=== PATIENT | female | born 1980 | race Caucasian/White ===

== ENCOUNTER → 2016-11-26 | Outpatient (CLI) | payer BC ==
[~2016-11-26] MED LIST: MULT1CHW18 PO
== END | disposition home or self-care (01) ==
LOC: C.PAPS 08:49
PROVIDERS: ATTEND Physician Assistant
DX: Z01.419 Encounter for gynecological examination (general) (routine) without abnormal findings (principal)

== ENCOUNTER → 2016-12-19 | Outpatient (CLI) | payer BC ==
[2016-12-19 14:07] LABS: CHOLESTEROL/HDL RATIO 3.9; THYROID STIMULATING HORMONE 2.36 uIu/ml (0.300-4.500)
== END | disposition home or self-care (01) ==
LOC: C.LAB1850 11:13
PROVIDERS: ATTEND Internal Medicine
DX: E78.00 Pure hypercholesterolemia, unspecified (principal); Z13.1 Encounter for screening for diabetes mellitus

== ENCOUNTER 2023-10-21 07:43 | Inpatient (IN) ==
[2023-10-21] MEDS ORDERED: OXYTOCIN 30 UNITS/NSS 30 UNITS/500 ML BAG IV PRN (08:40)
[2023-10-21] MEDS ORDERED: CALCIUM CARBONATE 500 MG CHEWABLE TAB PO PRN (08:40)
[2023-10-21] MEDS ORDERED: LIDOCAINE 1% LOCAL 20 ML VIAL INFIL PRN (08:40)
--- NOTE | 2023-10-21 08:56 | History & Physical Report ---
Date of Service October 21, 2023 Assessment & Plan (1) Encounter for induction of labor: (2) Insulin controlled gestational diabetes mellitus (GDM) during : (3) GBS (group B Streptococcus carrier), +RV culture, currently : (4) Advanced maternal age, 1st : (5) Rh negative state in antepartum period: Plan admit, iv, labs. start pitocin, pcn for gbs. will arom when appropriate. fhts categ 1. Admission and Anticipated Discharge Date Admission Date: October 21, 2023 History of Present Illness Chief Complaint: induction Primary Care Provider: Jeff Morris MD 43yo at 39+wks ega presents to LD for planned induction of labor. No rom, vb. +FM. No ctx. Recent issue with thrombosed hemorrhoid. PNC c/b 1. AMA>40@del 2. GBS pos 3. GDM on insulin 4. Rh neg, had rhogam,eval pp 5. Obesity PNL rh neg, RI, GBS positive. OBH: g1 GYNH: nl paps, no stds. Allergies Allergy/AdvReac Type Severity Reaction Status Date / Time No Known Allergies Allergy Verified 10/20/23 09:53 Home Medications Medication Instructions Recorded Confirmed Type vit 168-iron 27 mg-folic 1 cap PO DAILY 03/05/23 10/21/23 History acid 800 mcg-omega3 235 mg capsule (One-A-Day -1) aspirin 81 mg tablet,delayed 81 mg PO DAILY 04/30/23 10/21/23 History release cholecalciferol (vitamin D3) 125 125 mcg PO DAILY 04/30/23 10/21/23 History mcg (5,000 unit) tablet (Vitamin D3) cyanocobalamin (vitamin B-12) 500 500 mcg PO DAILY 04/30/23 10/21/23 History mcg tablet (Vitamin B-12) acetone (urine) test (Ketone Urine #50 ea 05/22/23 10/20/23 Rx Test strips) blood sugar diagnostic (EvaneosTouch #150 ea 05/22/23 10/20/23 Rx Verio test strips) blood-glucose meter (EvaneosTouch #1 ea 05/22/23 10/20/23 Rx Verio Reflect Meter) lancets 33 gauge (OneTouch Delica #150 ea 05/22/23 10/20/23 Rx Plus Lancet) pen needle, diabetic 32 gauge x #50 ea 07/20/23 10/20/23 Rx 5/32" (BD Ultra-Fine Joyce Pen Needle) thiamine HCl (vitamin B1) 100 mg 100 mg PO DAILY #30 tabs 07/23/23 10/21/23 Rx tablet insulin NPH isoph U-100 human 100 20 unit subcut QPM 10/21/23 10/21/23 History unit/mL (3 mL) subcutaneous pen (Novolin N FlexPen) Patient History Medical History (Updated 10/21/23 @ 09:02 by Nano Archer MD, FACOG) Obesity Surgical History Hx of cervical biopsy benign History of colonoscopy History of wisdom tooth extraction History of nasal cauterization History of tonsillectomy and adenoidectomy History of myringotomy bilateral Family History Grandmother (Maternal) Family history of diabetes mellitus Family hx colonic polyps Myocardial infarction Mother Family hx of colon cancer Colorectal cancer Grandfather (Maternal) Family hx of colon cancer Family hx colonic polyps Colorectal cancer Denies family history of Ovarian cancer Prostate cancer Breast cancer Social History Smoking Status: Never smoker Second Hand Exposure: No; Do You Dip or Chew Tobacco: No; Hx Alcohol Use: No Hx Substance Use: No Preferred Language: Bangladeshi Communication Ability: Effective Visual Impairment: No Limitations Hearing Ability: Normal Video System Repairer Required: No Beliefs That Will Affect Care: None marital status: Single marital status details: Blu (46) [phone] Current Living Situation: Significant Other Current Living Situation Comment: Lives with significant other, no pets current occupational status: employed current occupation: insurance and benefits clerk Feels Safe at Home: Yes Safety Concerns: Feels Safe At This Time Childhood Exposure to Second-Hand Smoke: No Dental Care, Regularly: Yes Physical Activity Frequency: 5-6 Times per Week Seatbelt Use: always Sunscreen Use: Yes Assistive Devices: None Review of Systems as per Subjective / HPI Physical Exam Constitutional: WD/WN, vitals as above Respiratory: normal respiratory effort, lungs clear to auscultation Cardiovascular: Rate/Rhythm: regular rate and regular rhythm Gastrointestinal (Abdomen): soft gravid nt efw 7-8# Musculoskeletal: no edema nontender calves Neurologic: grossly normal Psychiatric: A+Ox3, euthymic affect Genitourinary: Manual OB Exam: + cervical dilation (2-3), + cervical effaceme nt 70% and + station (mid soft) -2 OB Exam Monitor Tracing: + external FHT monitor used, + external uterine monitor used (irreg), + category I and + normal FHT variability Results & Data Vital Signs (Past 12 Hours) Vital Signs Temp Pulse Resp BP 10/21/23 08:00 98.2 F 20 10/21/23 08:00 111 H 121/81 Coding Level of Care Code None Diagnoses Encounter for induction of labor Z34.90 Insulin controlled gestational diabetes mellitus (GDM) in third trimester O24.414 Trimester: third trimester GBS (group B Streptococcus carrier), +RV culture, currently O99.820 Advanced maternal age, 1st O09.519 Rh negative state in antepartum period O26.899; Z67.91 (2) Insulin controlled gestational diabetes mellitus (GDM) during Trimester: third trimester Qualified Code(s): O24.414 - Gestational diabetes mellitus in , insulin controlled
[2023-10-21] MEDS: LACTATED RINGER'S 1,000 ML IV PRN (09:11)
[2023-10-21] MEDS: PENICILLIN GK 6 MU in DEXTROSE 5% 250 ML IV ONE (09:18)
[2023-10-21] MEDS: OXYTOCIN 30 UNITS/NSS 30 UNITS/500 ML BAG IV PRN (09:23)
[2023-10-21 09:30] LABS: Hemoglobin 11.9 g/dl (12.0-16.0); Mean Corpuscular Hemoglobin 30.3 pg (25.0-34.0); Mean Corpuscular Volume 86.5 fL (80.0-100.0); Platelet Count 188 K/uL (130-400); RDW Coefficient of Variation 13.4 % (11.5-14.5); RDW Standard Deviation 41.9 fL (36.4-46.3); Red Blood Count 3.93 M/uL (4.20-5.40); White Blood Count 7.72 K/ul (4.8-10.8)
--- NOTE | 2023-10-21 11:21 | Labor Progress Brief Note ---
Date of Service October 21, 2023 Subjective called to see pt due to decel. pt was just up at br and then back on monitor fhts 60s. no rom. no significant pain Assessment & Plan (1) Encounter for induction of labor: Plan bradycardia, unknown cause but now improved. restart pit if fhts categ 1 in 20-30min. events reviewed with couple. currently min variab therefore categ 2. Admission and Anticipated Discharge Date Admission Date: October 21, 2023 Physical Exam Constitutional: WD/WN, vitals as above Genitourinary: Manual OB Exam: + cervical dilation (2-3), + cervical effacement 80%, + station -2 and + amniotic fluid (FSE applied) clear OB Exam Monitor Tracing: + external FHT monitor used, + external uterine monitor used (q3, pit was at 7 but dc'd before i came in room. ivf bolus going. ) and + normal FHT variability position change after fse applied. fhts improved to 135, min variability Results & Data Vital Signs (Past 12 Hours) Vital Signs Temp Pulse Resp BP Pulse Ox 10/21/23 11:13 100 10/21/23 11:13 87 10/21/23 10:33 71 10/21/23 10:33 122/73 10/21/23 09:34 82 10/21/23 09:34 126/76 10/21/23 08:00 98.2 F 20 10/21/23 08:00 111 H 121/81 Coding Level of Care Code None Diagnoses Encounter for induction of labor Z34.90
[2023-10-21] MEDS: PENICILLIN GK 3 MU in DEXTROSE 5% 100 ML IV PRN (13:19)
[2023-10-21] MEDS ORDERED: diphenhydrAMINE 50 MG/ML VIAL IV PRN (16:24)
[2023-10-21] MEDS ORDERED: ROPIVACAINE 0.5% PF 5 MG/ML 20 ML VIAL EPI PRN (16:24)
[2023-10-21] MEDS ORDERED: BUPIVACAINE 0.25% PF 30 ML VIAL EPI STA (16:24)
[2023-10-21] MEDS ORDERED: LIDOCAINE 2%/EPINEPHRINE 1:200,000 20 ML PF EPI STA (16:24)
[2023-10-21] MEDS ORDERED: SODIUM CHLORIDE 0.9% PF INJ 10 ML VIAL EPI STA (16:24)
[2023-10-21] MEDS ORDERED: SODIUM CHLORIDE 0.9% PF INJ 10 ML VIAL EPI PRN (16:24)
[2023-10-21] MEDS ORDERED: fentaNYL citrate PF 100 MCG/2 ML VIAL EPI PRN (16:24)
[2023-10-21] MEDS ORDERED: ePHEDrine sulfate 50 MG/ML AMP IV PRN (16:24)
[2023-10-21] MEDS ORDERED: NALOXONE HCL 1 MG in SODIUM CHLORIDE 0.9% 1,000 ML IV PRN (16:24)
[2023-10-21] MEDS ORDERED: fentaNYL citrate PF 100 MCG/2 ML VIAL EPI STA (16:24)
[2023-10-21] MEDS ORDERED: NALBUPHINE HCL 5 MG in SYRINGE 0 ML IV PRN (16:24)
[2023-10-21] MEDS ORDERED: LIDOCAINE 2% MPF LOCAL 5 ML VIAL EPI PRN (16:24)
[2023-10-21] MEDS ORDERED: BUPIVACAINE 0.25% PF 30 ML VIAL EPI PRN (16:24)
[2023-10-21] MEDS ORDERED: NALOXONE HCL 0.4 MG/1 ML VIAL/CARP IV PRN (16:24)
--- NOTE | 2023-10-21 16:26 | Anesthesiology Consultation ---
Date of Service October 21, 2023 Assessment & Plan Chart Review Chart Review: Patient NOT seen in Pre Admission Testing and Acceptable Risk for Labor Epidural Consults Requested none History Height/Weight Height: 5 ft 3 in Weight: 98.43 kg Allergies Allergy/AdvReac Type Severity Reaction Status Date / Time No Known Allergies Allergy Verified 10/20/23 09:53 Medications Home Medications Medication Instructions Recorded Confirmed Last Taken vit 168-iron 27 mg-folic 1 cap PO DAILY 03/05/23 10/21/23 10/20/23 22:00 acid 800 mcg-omega3 235 mg capsule (One-A-Day -1) aspirin 81 mg tablet,delayed 81 mg PO DAILY 04/30/23 10/21/23 10/20/23 22:00 release cholecalciferol (vitamin D3) 125 125 mcg PO DAILY 04/30/23 10/21/23 10/17/23 10:00 mcg (5,000 unit) tablet (Vitamin D3) cyanocobalamin (vitamin B-12) 500 500 mcg PO DAILY 04/30/23 10/21/23 10/17/23 10:00 mcg tablet (Vitamin B-12) acetone (urine) test (Ketone Urine #50 ea 05/22/23 10/20/23 Unknown Test strips) blood sugar diagnostic (OneTouch #150 ea 05/22/23 10/20/23 Unknown Verio test strips) blood-glucose meter (OneTouch #1 ea 05/22/23 10/20/23 Unknown Verio Reflect Meter) lancets 33 gauge (OneTouch Delica #150 ea 05/22/23 10/20/23 Unknown Plus Lancet) pen needle, diabetic 32 gauge x #50 ea 07/20/23 10/20/23 Unknown 5/32" (BD Ultra-Fine Joyce Pen Needle) thiamine HCl (vitamin B1) 100 mg 100 mg PO DAILY #30 tabs 07/23/23 10/21/23 10/17/23 10:00 tablet insulin NPH isoph U-100 human 100 20 unit subcut QPM 10/21/23 10/21/23 10/20/23 23:00 unit/mL (3 mL) subcutaneous pen (Novolin N FlexPen) Active Medications Generic Name Dose Route Start Last Admin Trade Name Freq PRN Reason Stop Dose Admin Oxytocin 30 units in 500 mls @ 7 mls/hr 10/21/23 08:40 10/21/23 14:30 Pitocin 30 Units/Nss IV 10/23/23 08:39 0.42 units/hr .Q24H PRN 7 mls/hr Labor Induction/Augmentation Titration Protocol 0.42 UNITS/HR Lactated Ringer's 1,000 mls @ 125 mls/hr 10/21/23 08:40 10/21/23 16:40 Lr IV 10/23/23 08:39 125 mls/hr .Q8H PRN Administration L&D Protocol Protocol Penicillin G Potassium 3 mu/ 106 mls @ 100 mls/hr 10/21/23 11:40 10/21/23 13:19 Dextrose IV 10/31/23 11:39 100 mls/hr Q4H PRN Administration GBS(+) Until Delivery Past Medical History Medical History Obesity Exercise / Class Metabolic Activity II 4-5 Yardwork/Stairs/Walk up hill Past Family History Family History Grandmother (Maternal) Family history of diabetes mellitus Family hx colonic polyps Myocardial infarction Mother Family hx of colon cancer Colorectal cancer Grandfather (Maternal) Family hx of colon cancer Family hx colonic polyps Colorectal cancer Denies family history of Ovarian cancer Prostate cancer Breast cancer Past Surgical History Surgical History Hx of cervical biopsy benign History of colonoscopy History of wisdom tooth extraction History of nasal cauterization History of tonsillectomy and adenoidectomy History of myringotomy bilateral Social History Smoking Status: Never smoker Do You Dip or Chew Tobacco: No Hx Alcohol Use: No Alcohol type: beer and wine alcohol intake frequency: holidays/special occasions only Hx Substance Use: No substance use type: does not use Physical Exam Vital Signs Last Vital Signs Temp 36.8 C 10/21/23 15:00 Pulse 74 10/21/23 16:44 Resp 20 10/21/23 15:00 BP 123/67 10/21/23 16:44 Pulse Ox 99 10/21/23 16:44 Testing Laboratory Results 10/21/23 08:53 Blood Type A Negative 10/21/23 08:53 Antibody Screen NEGATIVE 10/21/23 08:53 10/21/23 10/21/23 15:51 08:26 POC Glucose 75 106 H
[2023-10-21] MEDS: BUPIVACAINE 0.25% PF 30 ML VIAL ONE (16:41)
[2023-10-21] MEDS: LIDOCAINE 2%/EPINEPHRINE 1:200,000 20 ML PF ONE (16:46)
[2023-10-21] MEDS: fentaNYL citrate PF 100 MCG/2 ML VIAL ONE (16:47)
[2023-10-21] MEDS: fentANYL 2 MCG/ML BUPIVacaine 0.125%-NSS 100ML BAG ONE (16:51)
[2023-10-21] MEDS: ePHEDrine sulfate 50 MG/ML AMP ONE (16:54)
[2023-10-21] MEDS: SODIUM CHLORIDE 0.9% PF INJ 10 ML VIAL ONE (16:54)
--- NOTE | 2023-10-21 19:55 | Labor Progress Brief Note ---
Date of Service October 21, 2023 Subjective pt seen earlier, this is late entry. s/p epidural, comfortable Assessment & Plan (1) Encounter for induction of labor: Plan good progress in labor, pcn for gbs pos, c/ w pit. fhts categ 1. Admission and Anticipated Discharge Date Admission Date: October 21, 2023 Physical Exam Constitutional: WD/WN, vitals as above Genitourinary: Manual OB Exam: + cervical dilation 7 cm, + cervical effacement (75%) and + station 0 OB Exam Monitor Tracing: + external FHT monitor used, + external uterine monitor used (q2-4), + category I, + normal FHT variability and + early decelerations present Results & Data Vital Signs (Past 12 Hours) Vital Signs Temp Pulse Resp BP Pulse Ox 10/21/23 19:50 98 10/21/23 19:50 75 10/21/23 19:46 89 10/21/23 19:46 125/74 10/21/23 19:45 97 10/21/23 19:45 74 10/21/23 19:40 98 10/21/23 19:40 93 H 10/21/23 19:35 99 10/21/23 19:35 119 H 10/21/23 19:30 98 10/21/23 19:30 73 10/21/23 19:29 67 10/21/23 19:29 131/67 10/21/23 19:25 98 10/21/23 19:25 59 L 10/21/23 19:20 99 10/21/23 19:20 61 10/21/23 19:15 99 10/21/23 19:15 66 10/21/23 19:13 73 10/21/23 19:13 126/71 10/21/23 19:10 18 10/21/23 19:10 97.7 F 18 10/21/23 19:10 100 10/21/23 19:10 69 10/21/23 19:05 98 10/21/23 19:05 66 10/21/23 19:00 98 10/21/23 19:00 66 10/21/23 18:59 68 10/21/23 18:59 119/65 10/21/23 18:55 98 10/21/23 18:55 70 10/21/23 18:50 98 10/21/23 18:50 72 10/21/23 18:45 99 10/21/23 18:45 68 10/21/23 18:43 62 10/21/23 18:43 118/65 10/21/23 18:40 97 10/21/23 18:40 60 10/21/23 18:35 98 10/21/23 18:35 65 10/21/23 18:30 98 10/21/23 18:30 67 10/21/23 18:29 67 10/21/23 18:29 113/67 10/21/23 18:25 99 10/21/23 18:25 78 10/21/23 18:20 99 10/21/23 18:20 77 10/21/23 18:16 82 10/21/23 18:16 128/73 10/21/23 18:15 99 10/21/23 18:15 74 10/21/23 18:12 93 10/21/23 18:12 79 10/21/23 18:09 100 10/21/23 18:09 88 10/21/23 18:04 100 10/21/23 18:04 64 10/21/23 17:59 100 10/21/23 17:59 73 10/21/23 17:59 119/58 L 10/21/23 17:54 100 10/21/23 17:54 76 10/21/23 17:51 93 10/21/23 17:51 73 10/21/23 17:49 100 10/21/23 17:49 80 10/21/23 17:44 100 10/21/23 17:44 70 10/21/23 17:44 124/65 10/21/23 17:40 92 10/21/23 17:40 102 H 10/21/23 17:39 95 10/21/23 17:39 94 H 10/21/23 17:34 100 10/21/23 17:34 71 10/21/23 17:29 100 10/21/23 17:29 70 10/21/23 17:28 70 10/21/23 17:28 111/64 10/21/23 17:24 100 10/21/23 17:24 96 H 10/21/23 17:19 100 10/21/23 17:19 69 10/21/23 17:14 100 10/21/23 17:14 66 10/21/23 17:12 66 10/21/23 17:12 109/59 L 10/21/23 17:09 100 10/21/23 17:09 66 10/21/23 17:08 72 10/21/23 17:08 117/58 L 10/21/23 17:04 100 10/21/23 17:04 77 10/21/23 17:03 79 10/21/23 17:03 113/58 L 10/21/23 16:59 99 10/21/23 16:59 75 10/21/23 16:56 88 10/21/23 16:56 115/55 L 10/21/23 16:54 100 10/21/23 16:54 83 10/21/23 16:54 115/68 10/21/23 16:52 80 10/21/23 16:52 122/58 L 10/21/23 16:50 81 10/21/23 16:50 125/60 10/21/23 16:49 99 10/21/23 16:49 84 10/21/23 16:48 81 10/21/23 16:48 131/63 10/21/23 16:46 76 10/21/23 16:46 127/74 10/21/23 16:44 99 10/21/23 16:44 74 10/21/23 16:44 123/67 10/21/23 16:42 78 10/21/23 16:42 136/75 10/21/23 16:41 71 10/21/23 16:41 133/79 10/21/23 16:39 100 10/21/23 16:39 74 10/21/23 16:34 100 10/21/23 16:34 85 10/21/23 16:28 100 10/21/23 16:28 82 10/21/23 16:23 100 10/21/23 16:23 77 10/21/23 16:18 100 10/21/23 16:18 68 10/21/23 16:13 100 10/21/23 16:13 64 10/21/23 16:08 100 10/21/23 16:08 71 10/21/23 16:03 100 10/21/23 16:03 67 10/21/23 15:58 99 10/21/23 15:58 68 10/21/23 15:54 90 10/21/23 15:54 76 10/21/23 15:53 100 10/21/23 15:53 72 10/21/23 15:48 100 10/21/23 15:48 72 10/21/23 15:43 100 10/21/23 15:43 76 10/21/23 15:38 100 10/21/23 15:38 65 10/21/23 15:33 100 10/21/23 15:33 68 10/21/23 15:28 100 10/21/23 15:28 71 10/21/23 15:23 100 10/21/23 15:23 74 10/21/23 15:18 97 10/21/23 15:18 92 H 10/21/23 15:13 99 10/21/23 15:13 89 10/21/23 15:08 99 10/21/23 15:08 68 10/21/23 15:03 99 10/21/23 15:03 73 10/21/23 15:00 20 10/21/23 15:00 98.2 F 20 10/21/23 14:58 100 10/21/23 14:58 74 10/21/23 14:53 98 10/21/23 14:53 66 10/21/23 14:48 100 10/21/23 14:48 73 10/21/23 14:43 98 10/21/23 14:43 94 H 10/21/23 14:39 90 10/21/23 14:39 125/80 10/21/23 14:38 99 10/21/23 14:38 86 10/21/23 14:33 98 10/21/23 14:33 79 10/21/23 14:28 99 10/21/23 14:28 80 10/21/23 14:23 99 10/21/23 14:23 62 10/21/23 14:18 98 10/21/23 14:18 93 H 10/21/23 14:13 99 10/21/23 14:13 83 10/21/23 14:08 99 10/21/23 14:08 72 10/21/23 14:03 100 10/21/23 14:03 75 10/21/23 13:58 100 10/21/23 13:58 90 10/21/23 13:53 99 10/21/23 13:53 75 10/21/23 13:48 99 10/21/23 13:48 65 10/21/23 13:43 99 10/21/23 13:43 74 10/21/23 13:38 100 10/21/23 13:38 71 10/21/23 13:33 99 10/21/23 13:33 77 10/21/23 13:28 99 10/21/23 13:28 76 10/21/23 13:23 20 10/21/23 13:23 98.2 F 20 10/21/23 13:23 99 10/21/23 13:23 82 10/21/23 13:18 99 10/21/23 13:18 81 10/21/23 13:13 100 10/21/23 13:13 66 10/21/23 13:08 99 10/21/23 13:08 71 10/21/23 13:03 99 10/21/23 13:03 77 10/21/23 12:58 100 10/21/23 12:58 72 10/21/23 12:53 100 10/21/23 12:53 71 10/21/23 12:48 100 10/21/23 12:48 81 10/21/23 12:43 100 10/21/23 12:43 69 10/21/23 12:38 100 10/21/23 12:38 73 10/21/23 12:35 71 10/21/23 12:35 110/65 10/21/23 12:33 99 10/21/23 12:33 68 10/21/23 12:28 99 10/21/23 12:28 69 10/21/23 12:23 100 10/21/23 12:23 67 10/21/23 12:18 98 10/21/23 12:18 67 10/21/23 12:13 99 10/21/23 12:13 72 10/21/23 12:08 100 10/21/23 12:08 68 10/21/23 12:03 100 10/21/23 12:03 68 10/21/23 11:58 100 10/21/23 11:58 71 10/21/23 11:53 99 10/21/23 11:53 66 10/21/23 11:48 99 10/21/23 11:48 73 10/21/23 11:43 100 10/21/23 11:43 76 10/21/23 11:38 100 10/21/23 11:38 71 10/21/23 11:33 99 10/21/23 11:33 69 10/21/23 11:30 66 10/21/23 11:30 113/65 10/21/23 11:28 100 10/21/23 11:28 72 10/21/23 11:23 100 10/21/23 11:23 73 10/21/23 11:18 100 10/21/23 11:18 71 10/21/23 11:13 100 10/21/23 11:13 87 10/21/23 10:33 71 10/21/23 10:33 122/73 10/21/23 09:34 82 10/21/23 09:34 126/76 10/21/23 08:00 98.2 F 20 10/21/23 08:00 111 H 121/81 Coding Level of Care Code None Diagnoses Encounter for induction of labor Z34.90
[2023-10-21] MEDS ORDERED: GLUCAGON FOR INJ 1 MG VIAL IM PRN (21:15)
[2023-10-21] MEDS ORDERED: GLUCOSE 40% GEL 15 GM TUBE PO PRN (21:15)
[2023-10-21] MEDS: GLUCOSE 10 TAB/TUBE PO PRN (21:15)
[2023-10-21] MEDS ORDERED: CARBOHYDRATES FOR HYPOGLYCEMIA PO PRN (21:15)
[2023-10-21] MEDS: DEXTROSE 50% 50 ML SYRINGE IV PRN (21:40)
[2023-10-21] MEDS: ONDANSETRON INJ 2 MG/ML 2 ML VIAL IV ONE (22:06)
[2023-10-21] MEDS: fentANYL 2 MCG/ML BUPIVacaine 0.125%-NSS 100ML BAG EPI PRN (23:07)
--- NOTE | 2023-10-22 00:34 | Delivery Summary ---
Vaginal Delivery Summary Date of Service October 22, 2023 Vaginal Delivery Summary and 3rd Degree LAC (partial) The patient dilated to complete and pushed to deliver a viable male infant Apgars 8 and 9 via over partial 3rd degree perineal laceration. Mouth and nose bulb suctioned at perineum. Shoulders and body delivered with ease. was vigorous and crying at . Cord clamped at 30 seconds of life and infant to maternal abdomen where the cord was then doubly clamped and cut. Placenta delivered spontaneously and intact, three-vessel cord. Hemostasis achieved with dilute pitocin and uterine massage and drainage of the bladder for approximately 25 cc under sterile conditions. Laceration repaired in layers with 3-0 vicryl in typical fashion, reinforcing anal sphincter whose fascia was disrupted but not the muscle. Cervix and sulci intact. QBL 439 cc. Mother and baby stable in recovery. [facility] [place] Charge Delivery Type Details: and 3rd Degree LAC (partial)
[2023-10-22] MEDS ORDERED: oxyCODONE/ACETAMINOPHEN 5mg/325mg TAB PO PRN (01:29)
[2023-10-22] MEDS ORDERED: HYDROCORTISONE ACETATE 25 MG SUPP PR PRN (01:29)
[2023-10-22] MEDS ORDERED: OXYTOCIN 30 UNITS/NSS 30 UNITS/500 ML BAG IV PRN (01:29)
[2023-10-22] MEDS: OXYTOCIN 20 UNITS/LR 1,002 ML IV SCH (01:47)
[2023-10-22] MEDS: IBUPROFEN 600 MG TAB PO PRN (01:47)
[2023-10-22] MEDS: BENZOCAINE 20% SPRY 85 APPLN/85 GM CAN EXT PRN (01:47)
[2023-10-22] MEDS ORDERED: SODIUM CHLORIDE 0.9% 250 ML IV PRN (04:06)
[2023-10-22] MEDS: DIPHTHER/TETAN/PERTUS Vaccine (Tdap, Adol/Adult) 0.5mL IM ONE (04:09)
--- NOTE | 2023-10-22 06:57 | Obstetrical Progress Note ---
Date of Service October 22, 2023 Assessment & Plan (1) care following vaginal delivery: stable, routine care. rhneg, await eval. . ri. hemorrhoid care going ok, not as uncomfortable. --will print and sign and fax supercream script when in office tomorrow, pt aware. (2) Rh negative state in antepartum period: Day #:: 1 Subjective Ambulation: ambulating normally Voiding: no voiding problems (small volume but does not feel incomplete) Diet Tolerance:: regular diet Lochia:: Small Feeding Type:: breast feeding hemorrhoid, less uncomfortable. no cp/sob/n/v. Constitutional: + as per Subjective / HPI Physical Exam Constitutional WD/WN, vitals as above Respiratory normal respiratory effort, lungs clear to auscultation Cardiovascular Rate/Rhythm: regular rate and regular rhythm Gastrointestinal (Abdomen) Inspection/Auscultation: abdomen normal to inspection Percussion/Palpation: abdomen soft Fundus firm 2cm down Musculoskeletal nt calves tr edema Neurologic grossly normal Psychiatric A+Ox3, euthymic affect Results & Data Vital Signs (Past 12 Hours) Vital Signs Temp Pulse Pulse Resp BP BP Pulse Ox 10/22/23 04:46 98.2 F 83 18 116/59 L 96 10/22/23 02:31 91 H 107/67 10/22/23 02:30 18 10/22/23 02:16 99 H 111/71 10/22/23 02:02 100 H 109/72 10/22/23 02:00 18 10/22/23 01:47 100 H 106/60 10/22/23 01:30 16 10/22/23 01:16 107 H 119/64 10/22/23 01:15 18 10/22/23 01:01 122 H 120/70 10/22/23 01:00 20 10/22/23 00:45 18 10/22/23 00:42 103 H 123/66 10/22/23 00:30 18 10/22/23 00:27 95 H 121/90 10/22/23 00:25 90 96 10/22/23 00:20 100 H 96 10/22/23 00:15 108 H 96 10/22/23 00:10 96 H 95 10/22/23 00:05 95 H 96 10/22/23 00:00 109 H 96 10/21/23 23:55 97 10/21/23 23:55 153 H 10/21/23 23:55 89 L 10/21/23 23:55 136 H 10/21/23 23:50 96 10/21/23 23:50 117 H 10/21/23 23:49 89 L 10/21/23 23:49 120 H 10/21/23 23:45 97 10/21/23 23:45 130 H 10/21/23 23:44 88 L 10/21/23 23:44 117 H 10/21/23 23:43 130 H 10/21/23 23:43 137/65 10/21/23 23:40 82 L 10/21/23 23:40 126 H 10/21/23 23:37 87 L 10/21/23 23:37 120 H 10/21/23 23:35 96 10/21/23 23:35 135 H 10/21/23 23:31 86 L 10/21/23 23:31 118 H 10/21/23 23:30 97 10/21/23 23:30 109 H 10/21/23 23:29 151 H 10/21/23 23:29 129/72 10/21/23 23:25 94 10/21/23 23:25 117 H 10/21/23 23:21 88 L 10/21/23 23:21 114 H 10/21/23 23:20 98 10/21/23 23:20 110 H 10/21/23 23:15 83 L 10/21/23 23:15 103 H 10/21/23 23:14 91 10/21/23 23:14 102 H 10/21/23 23:13 102 H 10/21/23 23:13 142/71 H 10/21/23 23:10 98.2 F 10/21/23 23:10 98 10/21/23 23:10 96 H 10/21/23 23:05 98 10/21/23 23:05 75 10/21/23 23:00 18 10/21/23 23:00 18 10/21/23 23:00 98 10/21/23 23:00 81 10/21/23 23:00 76 10/21/23 23:00 123/62 10/21/23 22:55 98 10/21/23 22:55 81 10/21/23 22:50 98 10/21/23 22:50 72 10/21/23 22:45 98 10/21/23 22:45 74 10/21/23 22:44 80 10/21/23 22:44 127/63 10/21/23 22:40 98 10/21/23 22:40 77 10/21/23 22:35 97 10/21/23 22:35 80 10/21/23 22:30 97 10/21/23 22:30 84 10/21/23 22:29 100 H 10/21/23 22:29 135/104 H 10/21/23 22:25 96 10/21/23 22:25 78 10/21/23 22:20 98 10/21/23 22:20 76 10/21/23 22:15 98 10/21/23 22:15 79 10/21/23 22:14 84 10/21/23 22:14 135/66 10/21/23 22:10 97 10/21/23 22:10 98 H 10/21/23 22:05 96 10/21/23 22:05 102 H 10/21/23 22:00 96 10/21/23 22:00 73 10/21/23 21:59 70 10/21/23 21:59 144/65 H 10/21/23 21:55 96 10/21/23 21:55 85 10/21/23 21:50 97 10/21/23 21:50 93 H 10/21/23 21:45 98 10/21/23 21:45 86 10/21/23 21:45 94 H 10/21/23 21:45 126/63 10/21/23 21:40 97 10/21/23 21:40 90 10/21/23 21:35 99 10/21/23 21:35 84 10/21/23 21:35 92 10/21/23 21:35 92 H 10/21/23 21:33 98.1 F 10/21/23 21:30 18 10/21/23 21:30 18 10/21/23 21:30 98 10/21/23 21:30 69 10/21/23 21:30 126/58 L 10/21/23 21:25 97 10/21/23 21:25 79 10/21/23 21:20 99 10/21/23 21:20 104 H 10/21/23 21:15 98 10/21/23 21:15 75 10/21/23 21:15 75 10/21/23 21:15 116/63 10/21/23 21:10 97 10/21/23 21:10 75 10/21/23 21:05 98 10/21/23 21:05 82 10/21/23 21:00 18 10/21/23 21:00 18 10/21/23 21:00 98 10/21/23 21:00 80 10/21/23 21:00 137/59 L 10/21/23 20:55 98 10/21/23 20:55 72 10/21/23 20:50 99 10/21/23 20:50 74 10/21/23 20:45 97 10/21/23 20:45 86 10/21/23 20:44 69 10/21/23 20:44 139/64 10/21/23 20:40 99 10/21/23 20:40 75 10/21/23 20:36 90 10/21/23 20:36 100 H 10/21/23 20:35 98 10/21/23 20:35 74 10/21/23 20:30 16 10/21/23 20:30 16 10/21/23 20:30 98 10/21/23 20:30 73 10/21/23 20:29 71 10/21/23 20:29 111/52 L 10/21/23 20:25 99 10/21/23 20:25 72 10/21/23 20:20 100 10/21/23 20:20 69 10/21/23 20:15 100 10/21/23 20:15 70 10/21/23 20:14 67 10/21/23 20:14 112/57 L 10/21/23 20:10 99 10/21/23 20:10 70 10/21/23 20:05 99 10/21/23 20:05 67 10/21/23 20:00 99 10/21/23 20:00 62 10/21/23 19:59 64 10/21/23 19:59 105/52 L 10/21/23 19:55 99 10/21/23 19:55 64 10/21/23 19:50 98 10/21/23 19:50 75 10/21/23 19:46 89 10/21/23 19:46 125/74 10/21/23 19:45 97 10/21/23 19:45 74 10/21/23 19:40 98 10/21/23 19:40 93 H 10/21/23 19:35 99 10/21/23 19:35 119 H 10/21/23 19:30 18 10/21/23 19:30 18 10/21/23 19:30 98 10/21/23 19:30 73 10/21/23 19:29 67 10/21/23 19:29 131/67 10/21/23 19:25 98 10/21/23 19:25 59 L 10/21/23 19:20 99 10/21/23 19:20 61 10/21/23 19:15 99 10/21/23 19:15 66 10/21/23 19:13 73 10/21/23 19:13 126/71 10/21/23 19:10 18 10/21/23 19:10 97.7 F 18 10/21/23 19:10 100 10/21/23 19:10 69 10/21/23 19:05 98 10/21/23 19:05 66 10/21/23 19:00 98 10/21/23 19:00 66 10/21/23 18:59 68 10/21/23 18:59 119/65 10/21/23 18:55 98 10/21/23 18:55 70 O2 Del Method 10/22/23 04:46 Room Air 10/22/23 02:31 10/22/23 02:30 10/22/23 02:16 10/22/23 02:02 10/22/23 02:00 10/22/23 01:47 10/22/23 01:30 10/22/23 01:16 10/22/23 01:15 10/22/23 01:01 10/22/23 01:00 10/22/23 00:45 10/22/23 00:42 10/22/23 00:30 10/22/23 00:27 10/22/23 00:25 10/22/23 00:20 10/22/23 00:15 10/22/23 00:10 10/22/23 00:05 10/22/23 00:00 10/21/23 23:55 10/21/23 23:55 10/21/23 23:55 10/21/23 23:55 10/21/23 23:50 10/21/23 23:50 10/21/23 23:49 10/21/23 23:49 10/21/23 23:45 10/21/23 23:45 10/21/23 23:44 10/21/23 23:44 10/21/23 23:43 10/21/23 23:43 10/21/23 23:40 10/21/23 23:40 10/21/23 23:37 10/21/23 23:37 10/21/23 23:35 10/21/23 23:35 10/21/23 23:31 10/21/23 23:31 10/21/23 23:30 10/21/23 23:30 10/21/23 23:29 10/21/23 23:29 10/21/23 23:25 10/21/23 23:25 10/21/23 23:21 10/21/23 23:21 10/21/23 23:20 10/21/23 23:20 10/21/23 23:15 10/21/23 23:15 10/21/23 23:14 10/21/23 23:14 10/21/23 23:13 10/21/23 23:13 10/21/23 23:10 10/21/23 23:10 10/21/23 23:10 10/21/23 23:05 10/21/23 23:05 10/21/23 23:00 10/21/23 23:00 10/21/23 23:00 10/21/23 23:00 10/21/23 23:00 10/21/23 23:00 10/21/23 22:55 10/21/23 22:55 10/21/23 22:50 10/21/23 22:50 10/21/23 22:45 10/21/23 22:45 10/21/23 22:44 10/21/23 22:44 10/21/23 22:40 10/21/23 22:40 10/21/23 22:35 10/21/23 22:35 10/21/23 22:30 10/21/23 22:30 10/21/23 22:29 10/21/23 22:29 10/21/23 22:25 10/21/23 22:25 10/21/23 22:20 10/21/23 22:20 10/21/23 22:15 10/21/23 22:15 10/21/23 22:14 10/21/23 22:14 10/21/23 22:10 10/21/23 22:10 10/21/23 22:05 10/21/23 22:05 10/21/23 22:00 10/21/23 22:00 10/21/23 21:59 10/21/23 21:59 10/21/23 21:55 10/21/23 21:55 10/21/23 21:50 10/21/23 21:50 10/21/23 21:45 10/21/23 21:45 10/21/23 21:45 10/21/23 21:45 10/21/23 21:40 10/21/23 21:40 10/21/23 21:35 10/21/23 21:35 10/21/23 21:35 10/21/23 21:35 10/21/23 21:33 10/21/23 21:30 10/21/23 21:30 10/21/23 21:30 10/21/23 21:30 10/21/23 21:30 10/21/23 21:25 10/21/23 21:25 10/21/23 21:20 10/21/23 21:20 10/21/23 21:15 10/21/23 21:15 10/21/23 21:15 10/21/23 21:15 10/21/23 21:10 10/21/23 21:10 10/21/23 21:05 10/21/23 21:05 10/21/23 21:00 10/21/23 21:00 10/21/23 21:00 10/21/23 21:00 10/21/23 21:00 10/21/23 20:55 10/21/23 20:55 10/21/23 20:50 10/21/23 20:50 10/21/23 20:45 10/21/23 20:45 10/21/23 20:44 10/21/23 20:44 10/21/23 20:40 10/21/23 20:40 10/21/23 20:36 10/21/23 20:36 10/21/23 20:35 10/21/23 20:35 10/21/23 20:30 10/21/23 20:30 10/21/23 20:30 10/21/23 20:30 10/21/23 20:29 10/21/23 20:29 10/21/23 20:25 10/21/23 20:25 10/21/23 20:20 10/21/23 20:20 10/21/23 20:15 10/21/23 20:15 10/21/23 20:14 10/21/23 20:14 10/21/23 20:10 10/21/23 20:10 10/21/23 20:05 10/21/23 20:05 10/21/23 20:00 10/21/23 20:00 10/21/23 19:59 10/21/23 19:59 10/21/23 19:55 10/21/23 19:55 10/21/23 19:50 10/21/23 19:50 10/21/23 19:46 10/21/23 19:46 10/21/23 19:45 10/21/23 19:45 10/21/23 19:40 10/21/23 19:40 10/21/23 19:35 10/21/23 19:35 10/21/23 19:30 10/21/23 19:30 10/21/23 19:30 10/21/23 19:30 10/21/23 19:29 10/21/23 19:29 10/21/23 19:25 10/21/23 19:25 10/21/23 19:20 10/21/23 19:20 10/21/23 19:15 10/21/23 19:15 10/21/23 19:13 10/21/23 19:13 10/21/23 19:10 10/21/23 19:10 10/21/23 19:10 10/21/23 19:10 10/21/23 19:05 10/21/23 19:05 10/21/23 19:00 10/21/23 19:00 10/21/23 18:59 10/21/23 18:59 10/21/23 18:55 10/21/23 18:55
--- NOTE | 2023-10-22 07:53 | Anesthesia Procedure Note ---
Date of Service October 22, 2023 Anesthesia Post Epidural Note Vital Signs Vital Signs: Temp Pulse Resp BP Pulse Ox O2 Del Method 98.2 F 83 18 116/59 L 96 Room Air 10/22/23 04:46 10/22/23 04:46 10/22/23 04:46 10/22/23 04:46 10/22/23 04:46 10/22/23 04:46 Pain Intensity Abdomen: Pain Intensity: 2 Notes Mental Status: alert / awake / arousable and participated in evaluation Patient Amnestic to Procedure: No Nausea / Vomiting: adequately controlled Pain: adequately controlled Airway Patency, RR, SpO2: stable & adequate BP & HR: stable & adequate Hydration State: stable & adequate Neuraxial Anesthesia: was administered and sensory block is resolving Anesthetic Complications: no major complications apparent and Pt Satisfied with anesthetic care Epidural: Removed without complications and With tip intact
[2023-10-22] MEDS: DOCUSATE SODIUM 100 MG CAP PO SCH (09:21)
[2023-10-22] MEDS: PRENATAL VITAMIN 1 TAB PO SCH (09:21)
[2023-10-22] MEDS: ACETAMINOPHEN 325 MG TAB PO PRN (09:22)
[2023-10-23 06:55] LABS: Hemoglobin 8.3 g/dl (12.0-16.0)
--- NOTE | 2023-10-23 07:05 | Obstetrical Progress Note ---
Date of Service October 23, 2023 Assessment & Plan Admission and Anticipated Discharge Date Admission Date: October 21, 2023 Results & Data Vital Signs (Past 12 Hours) Vital Signs Temp Pulse Resp BP Pulse Ox O2 Del Method 10/22/23 23:52 36.8 C 73 18 114/67 96 Room Air 10/22/23 21:00 36.6 C 78 18 125/69 98 Room Air
--- NOTE | 2023-10-23 07:06 | Obstetrical Progress Note ---
Date of Service <Jules Toro MD - Last Filed: 10/23/23 07:11> October 23, 2023 Assessment & Plan <Jules Toro MD - Last Filed: 10/23/23 07:11> (1) Encounter for assessment: visit type: exam and care immediately after delivery Qualified Code(s): Z39.0 - Encounter for care and examination of mother immediately after delivery Plan Pt is a 43 y/o female who is now PPD#2 following at 39 weeks. Received 2nd Rhogam on post delivery 10/21. PPD [ ]: stable, routine management -Patient is voiding and ambulating on their own power -Pain is well controlled on as needed analgesia -Tolerating regular diet without nausea or vomiting -Planned to Breast feed * Anticipate d/c home today * 6 weeks OB outpatient follow-up <Anne Calle MD - Last Filed: 10/23/23 07:57> (1) Encounter for assessment: Subjective <Jules Toro MD - Last Filed: 10/23/23 07:11> Ambulation: ambulating normally Voiding: no voiding problems Diet Tolerance:: regular diet Lochia:: Moderate Feeding Type:: breast feeding Pt is a 43 y/o female who is now PPD#2 following at 39 weeks. Reports feeling well overall this morning. minimal abdominal cramping and 0-2/10 pain, well managed on analgesics. Voiding normal, no dysuria. Tolerating meals and able to ambulate some. passing gas but no bowel movements. Some persistent lochia with overall improvement as of this morning. Breast feeding. Review of Systems -Denies fever or chills -Denies dyspnea, chest pain, or palpitations -Denies breast pain -Denies dysuria -Denies headache or changes in vision Physical Exam <Jules Toro MD - Last Filed: 10/23/23 07:11> General: Alert and oriented. No acute distress Cardiac: Regular rate and rhythm, no murmurs appreciated Respiratory: Lungs clear to auscultation bilaterally, No increased work of breathing Abdominal: Soft, non-tender, non-distended. Bowel sounds present. Uterus: Uterine fundus firm, palpable below umbilicus Extremities: 2+ lower extremity edema, calves non-tender bilaterally Results & Data <Jules Toro MD - Last Filed: 10/23/23 07:11> Vital Signs (Past 12 Hours) Vital Signs Temp Pulse Resp BP Pulse Ox O2 Del Method 10/22/23 23:52 36.8 C 73 18 114/67 96 Room Air 10/22/23 21:00 36.6 C 78 18 125/69 98 Room Air Supervising Physician <Anne Calle MD - Last Filed: 10/23/23 07:57> Co-Signing Physician Notes Resident Physician Supervision Note: I interviewed and examined the patient. Discussed with Dr. Toro and agree with findings and plan as documented in the note. Any exceptions or clarifications are listed here: Stable for dc home, has supercream rx sent Documented By: Anne Calle MD Resident Activity Tracking <Jules Toro MD - Last Filed: 10/23/23 07:11> Resident Involvement: Resident Care Provided Care Provided: OB Delivery
[2023-10-23 08:54] VITALS: BP 124/69; PULSE 78; RESP 14; TEMP 97.7; O2SAT 98
[2023-10-23] MEDS ORDERED: bisacodyL 5 MG TABEC PO SCH (20:00)
== END 2023-10-23 13:45 | disposition home or self-care (01) | DRG 768 ==
LOC: 4S1 07:43 → 4E1 10-22 04:03
DX: O24.424 Gestational diabetes mellitus in childbirth, insulin controlled; O70.20 Third degree perineal laceration during delivery, unspecified; Z3A.39 39 weeks gestation of pregnancy; O99.824 Streptococcus B carrier state complicating childbirth; Z79.4 Long term (current) use of insulin; Z67.11 Type A blood, Rh negative; O76 Abnormality in fetal heart rate and rhythm complicating labor and delivery; Z37.0 Single live birth; O26.893 Other specified pregnancy related conditions, third trimester; Z79.82 Long term (current) use of aspirin